=== PATIENT | male | born 1970 | race Caucasian/White ===

== ENCOUNTER 2018-08-17 16:27 | Emergency (ER) | payer BC ==
[2018-08-17] MEDS ORDERED: OXYCODONE-ACETAMINOPHEN 5-325 MG TABLET PO ONE (17:53)
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
--- NOTE | 2018-08-17 18:54 | RADIOLOGY REPORT (SQ) ---
EXAM DESCRIPTION: KNEE LEFT 4 VIEW COMPLETED DATE/TIME: 08/17/2018 6:43 pm REASON FOR STUDY: KNEE PAIN COMPARISON: None. NUMBER OF VIEWS: Four views. TECHNIQUE: AP, lateral, and both oblique radiographic images acquired of the left knee. LIMITATIONS: None. FINDINGS: MINERALIZATION: Normal. BONES: No acute fracture or dislocation. No worrisome bone lesions. JOINT: No effusion. SOFT TISSUES: No soft tissue swelling. No radio-opaque foreign body. OTHER: No other significant finding. IMPRESSION: NO RADIOGRAPHIC EVIDENCE OF ACUTE INJURY. TECHNICAL DOCUMENTATION: JOB ID: [id number] [employer]- All Rights Reserved Reading location - IP/workstation name: [email or web address]
[2018-08-17 22:32] VITALS: BP 127/71
--- NOTE | 2018-08-18 09:19 | RADIOLOGY REPORT (SQ) ---
EXAM DESCRIPTION: VENOUS UNILATERAL LOWER COMPLETED DATE/TIME: 08/17/2018 8:43 pm REASON FOR STUDY: LLE SWELLING, KNEE PAIN RISK FACTORS FOR DVT COMPARISON: None. TECHNIQUE: Dynamic and static holloway scale and color images acquired of the left leg venous system. Se lected spectral images acquired with additional compression and augmentation maneuvers. The contralat eral common femoral vein and saphenofemoral junction were also imaged. Images stored on PACS. LIMITATIONS: None. FINDINGS: COMMON FEMORAL: Normal phasicity, compression and augmentation. No visualized echogenic ma terial on holloway scale. No defects on color images. FEMORAL: Normal compression and augmentation. No visualized echogenic material on holloway scale. No defe cts on color images. POPLITEAL: Normal compression, augmentation. No visualized echogenic material on holloway scale. No defec ts on color images. CALF VESSELS: Normal compression, augmentation. No visualized echogenic material on holloway scale. No de fects on color images. GSV and SSV: Normal compression, augmentation. No visualized echogenic material on holloway scale. No def ects on color images. ANY DEEP VENOUS INSUFFICIENCY: Not evaluated. ANY EVIDENCE OF POPLITEAL CYST: No. OTHER: No other significant finding. CONTRALATERAL COMMON FEMORAL VEIN AND SAPHENOFEMORAL JUNCTION: Normal phasicity, compression and augmentation. No visualized echogenic material on holloway scale. No de fects on color images. IMPRESSION: NO EVIDENCE DVT OR SVT IN THE LEFT LEG. TECHNICAL DOCUMENTATION: JOB ID: [id number] [employer]- All Rights Reserved Reading location - IP/workstation name: [email or web address]
== END 2018-08-17 22:32 | disposition home or self-care (01) ==
LOC: ER 16:27
DX: S83.92XA Sprain of unspecified site of left knee, initial encounter (principal); X58.XXXA Exposure to other specified factors, initial encounter; M79.89 Other specified soft tissue disorders; I10 Essential (primary) hypertension; F17.200 Nicotine dependence, unspecified, uncomplicated
CPT/HCPCS: 93971; 99283